=== PATIENT | female | born 1995 | race Caucasian/White ===

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

== ENCOUNTER 2019-10-20 03:41 | Emergency (ER) | payer OTHER ==
[~2019-10-20] VITALS: Ht 160 cm; Wt 68.0 kg
[2019-10-20 03:50] VITALS: BP 141/98; Ht 160 cm; Wt 68.0 kg
== END 2019-10-20 04:13 | disposition other institution (70) ==
LOC: ED 03:41
DX: Z02.89 Encounter for other administrative examinations (principal)